=== PATIENT | female | born 1995 | race Two or more races ===

== ENCOUNTER 2025-10-06 01:12 | Emergency (ER) | payer BC, OTHER ==
[~2025-10-06] VITALS: Ht 162.6 cm; Wt 56.7 kg
[2025-10-06 05:25] VITALS: BP 118/70; TEMP 98.2; O2SAT 98
== END 2025-10-06 05:25 | disposition home or self-care (01) ==
LOC: ER 01:14
DX: F10.129 Alcohol abuse with intoxication, unspecified (principal); Z79.899 Other long term (current) drug therapy; Y90.9 Presence of alcohol in blood, level not specified
CPT/HCPCS: 82962-TC